=== PATIENT | female | born 1950 | race Caucasian/White ===

== ENCOUNTER 2018-05-04 13:15 | Day surgery (SDC) | payer MEDICARE, OTHER ==
[~2018-05-04 13:15] MED LIST: ALBU90OI6 INH; ALBU90OI61 INH; ALEN70 PO; AMAN100 PO; ASPI81CH PO; Allergy Relief10 M1 PO; Anastrozole1 GM MC; BUPRENORPHINE HC2 MG SL; CLOB.05TO; CLON.5 PO; CODGUAEL PO; CYCL10 PO; Cinnamon500 MG PO; DOCU100 PO; FISH1000 PO; FLUSAL2505 INH; FLUT.05NI; HYDACE10B PO; LACT10SY PO; LOPE2C PO; LOSA50 PO; LOSARTAN POTAS100 MG PO; MORP30ER PO; Miralax17 GM; Norvasc2.5 MG PO; OMEP20ER PO; OMEP40CA12 PO; OXYB5 PO; Oxybutynin Chlo10 MG PO; PRAV20 PO; PREG25 PO; PROM25 PO; PSYL5.85P PO; Pravachol40 MG PO; RASPBERRY KETO100 MG PO; RELISTOR12 MG/0.6; SENN187 PO; Senna8.6 M1 PO; Sudogest60 MG PO; TRAZ100 PO; TROSPIUM CHLORI20 MG PO; VITAMIN D-32000 UNI1 PO; VITAMIN D-32000 UNIT PO; ZIPSOR25 MG PO; [UNRECOGNIZED DRUG - OTHER]; [UNRECOGNIZED DRUG - OTHER] TOP
--- NOTE | 2018-05-04 16:51 | NUR ---
Patient up to Ambulate independently. Gait steady. Discharge instructions reviewed with patient. Patient verbalizes understanding. Copy given to patient to take home. Dressing to procedure site clean, dry, intact with no visible drainage, swelling, erythema or bruising noted. Patient States Post-Procedure ride home has been arranged.
== END 2018-05-04 22:35 | disposition home or self-care (01) ==
LOC: US 13:15
PROVIDERS: Radiology Diagnostic Radiology
PROC: 0FB03ZX Excision of Liver, Percutaneous Approach, Diagnostic (ICD-10-PCS; principal; 2018-05-04 15:00)
DX: K75.81 Nonalcoholic steatohepatitis (NASH) (principal); K74.0 Hepatic fibrosis; I10 Essential (primary) hypertension; E78.5 Hyperlipidemia, unspecified; E11.9 Type 2 diabetes mellitus without complications
CPT/HCPCS: 47000; 76942; 88307; 88313

== ENCOUNTER 2018-11-24 11:06 | Day surgery (SDC) | payer MEDICARE, OTHER ==
[~2018-11-24] VITALS: Ht 154.9 cm; Wt 84.4 kg
[~2018-11-24 11:06] MED LIST changes: +ALBU90OI INH; +ATECHL PO; +Aspir 8181 MG PO; +CHOL10002 PO; +COQ1050 MG PO; +DULO60 PO; +Flonase 0.05% N16 GM; +GLUCOSAMINE &1 EACH PO; +Hydrocodone-Ap1 EA23 PO; +Loratadine10 MG PO; +MAGNESIUM PO; +METAMUCIL; +MIRALAX119 GM; +Metformin HCl500 M1 PO; +OMEG1CAP30 PO; +PHENYLEPHRINE PO; +Vitamin C100 M1 PO; +[UNRECOGNIZED DRUG - OTHER] PO
--- NOTE | 2018-11-24 12:33 | NUR ---
Ambulatory in Day Surgery. History, Chart, Medications and Allergies reviewed before start of procedure. Lungs clear T/O to Auscultation. Patient confirms NPO status and agrees with scheduled surgery. Pre-Op teaching done. Pt verbalizes understanding. Patient States Post-Procedure ride home has been arranged. , Howard, at bedside.
--- NOTE | 2018-11-24 13:13 | NUR ---
11/24/18 1313 Mark Interiano History, Chart, Medications and Allergies reviewed before start of procedure.MONITOR INTACT WITH CONTINUOUS PULSE OXIMETRY AND INTERMITTENT BP.3-LEAD EKG REVIEWED WITH PHYSICIAN PRIOR TO START OF PROCEDURE.O2 VIA N/C INTACT THROUGHOUT SEDATION/PROCEDURE. Patient confirms NPO status and agrees with scheduled surgery.See Anesthesia record.
--- NOTE | 2018-11-24 14:33 | NUR ---
Discharge instructions reviewed with patient. Patient verbalizes understanding. Copy given to patient to take home. Discharged via wheelchair to private car for ride home.
== END 2018-11-24 23:18 | disposition home or self-care (01) ==
LOC: ORSCMMR 11:06 → ORD 13:00 → ORSCMMR 13:00
PROVIDERS: Internal Medicine Gastroenterology
PROC: 0DJ08ZZ Inspection of Upper Intestinal Tract, Via Natural or Artificial Opening Endoscopic (ICD-10-PCS; principal; 2018-11-24 13:00)
DX: Z13.810 Encounter for screening for upper gastrointestinal disorder (principal); K74.60 Unspecified cirrhosis of liver; E11.9 Type 2 diabetes mellitus without complications; I10 Essential (primary) hypertension; J44.9 Chronic obstructive pulmonary disease, unspecified; G47.33 Obstructive sleep apnea (adult) (pediatric); Z99.81 Dependence on supplemental oxygen; Z87.891 Personal history of nicotine dependence; Z79.899 Other long term (current) drug therapy; Z79.82 Long term (current) use of aspirin; E66.01 Morbid (severe) obesity due to excess calories; Z68.35 Body mass index [BMI] 35.0-35.9, adult
CPT/HCPCS: 82947; J2704; J7120

== ENCOUNTER → 2019-01-12 | Outpatient (CLI) | payer MEDICARE, OTHER | LOC: LAB SHORT 08:20 → PLD 08:20 | DX: L98.6 Other infiltrative disorders of the skin and subcutaneous tissue (principal) | CPT/HCPCS: 88305 ==

== ENCOUNTER → 2019-03-09 | Outpatient (CLI) | payer MEDICARE, OTHER | END | disposition home or self-care (01) | LOC: LAB SHORT 16:13 → LAB 16:13 | DX: L08.0 Pyoderma (principal) | CPT/HCPCS: 87070; 87205 ==

== ENCOUNTER 2020-06-30 07:24 | Day surgery (SDC) | payer MEDICARE, OTHER ==
[~2020-06-30] VITALS: Ht 149.9 cm; Wt 72.8 kg
--- NOTE | 2020-06-30 08:07 | NUR ---
06/30/20 0807 Vianney Holloway 1 TRY RIGHT WRIST VALVE BLEW
--- NOTE | 2020-06-30 09:07 | NUR ---
06/30/20 0907 Nola Corbin UNABLE TO ADVANCE REGULAR COLONOSCOPE PROCEDURE STOPPED T 904 AND RESTARTED AT 906 WITH PEDIATRIC SCOPE
== END 2020-06-30 10:30 | disposition home or self-care (01) ==
LOC: ORSCSDS 07:24
DX: R10.826 Epigastric rebound abdominal tenderness (principal); Z12.11 Encounter for screening for malignant neoplasm of colon; K57.30 Diverticulosis of large intestine without perforation or abscess without bleeding; K64.4 Residual hemorrhoidal skin tags; K64.8 Other hemorrhoids; Z86.010 Personal history of colon polyps; J44.9 Chronic obstructive pulmonary disease, unspecified; K74.60 Unspecified cirrhosis of liver; K75.81 Nonalcoholic steatohepatitis (NASH); Z79.82 Long term (current) use of aspirin; Z79.899 Other long term (current) drug therapy; F17.210 Nicotine dependence, cigarettes, uncomplicated
CPT/HCPCS: 43239; G0105; 82947; 88305; 88342; J2405; J2704; J7120

== ENCOUNTER 2021-01-24 14:19 | Emergency (ER) | payer MEDICARE, OTHER ==
[~2021-01-24] VITALS: Ht 149.9 cm; Wt 77.6 kg
[2021-01-24 15:53] LABS: SARS-Cov-2 (COVID-19) PCR, MMC POSITIVE (NEGATIVE)
== END 2021-01-24 19:41 | disposition home or self-care (01) ==
LOC: ER 14:19
PROVIDERS: Physician Assistant
DX: U07.1 COVID-19 (principal); J44.9 Chronic obstructive pulmonary disease, unspecified; I10 Essential (primary) hypertension; Z88.1 Allergy status to other antibiotic agents; Z91.040 Latex allergy status; Z91.048 Other nonmedicinal substance allergy status; Z91.011 Allergy to milk products; Z88.8 Allergy status to other drugs, medicaments and biological substances; Z79.899 Other long term (current) drug therapy; Z79.82 Long term (current) use of aspirin; Z87.891 Personal history of nicotine dependence
CPT/HCPCS: 36415; 99284; M0243; Q0243; U0004

== ENCOUNTER → 2021-03-29 | Outpatient (CLI) | payer MEDICARE, OTHER ==
[2021-03-29 20:24] LABS: Albumin, Blood 3.5 g/dL (3.4-5.0); Anion Gap 6 mmol/L (6-16); Blood Urea Nitrogen 23 mg/dL (8-24); CO2, Blood 28 mmol/L (21-32); Calcium, Blood 9.1 mg/dL (8.5-10.1); Chloride, Blood 102 mmol/L (98-108); Glomerular Filtration Rate 54 (60-); Glucose, Blood 99 mg/dL (70-99); Phosphorus, Blood 3.4 mg/dL (2.5-4.9); Potassium, Blood 4.2 mmol/L (3.5-5.5); Sodium, Blood 136 mmol/L (136-145)
== END | disposition home or self-care (01) ==
LOC: LAB SHORT 19:00
PROVIDERS: Physician Assistant
DX: R94.4 Abnormal results of kidney function studies (principal)
CPT/HCPCS: 80069

== ENCOUNTER 2021-10-24 20:54 | Emergency (ER) | payer MEDICARE, OTHER ==
[~2021-10-24] VITALS: Ht 149.9 cm; Wt 72.6 kg
[2021-10-24 22:02] LABS: BASOPHILS ABSOLUTE AUTO 0.04 K/mm3 (0.00-0.23); BASOPHILS PERCENT AUTO 1 % (0-2); EOSINOPHILS ABSOLUTE AUTO 0.17 K/mm3 (0.00-0.68); EOSINOPHILS PERCENT AUTO 2 % (0-6); Hematocrit 42.3 % (33.0-51.0); Hemoglobin 14.1 g/dL (11.5-16.0); IMMATURE GRAN ABSOLUTE AUTO 0.02 K/mm3 (0.00-0.10); IMMATURE GRAN PERCENT AUTO 0 % (0-1); LYMPHOCYTES ABSOLUTE AUTO 1.66 K/mm3 (0.84-5.20); LYMPHOCYTES PERCENT AUTO 21 % (21-46); MONOCYTES ABSOLUTE AUTO 0.64 K/mm3 (0.16-1.47); MONOCYTES PERCENT AUTO 8 % (4-13); Mean Corpuscular HGB 32.9 pg (26.0-34.0); Mean Corpuscular HGB Conc 33.3 g/dL (31.5-36.5); Mean Corpuscular Volume 99 fL (80-100); Mean Platelet Volume 8.8 fL (9.1-12.4); NEUTROPHILS ABSOLUTE AUTO 5.26 K/mm3 (1.96-9.15); NEUTROPHILS PERCENT AUTO 68 % (41-73); Platelet Count 228 K/mm3 (150-400); RDW Coefficient Variation 11.9 % (11.7-14.2); RDW Standard Deviation 43.4 fL (35.1-46.3); Red Blood Cell Count 4.29 M/mm3 (3.80-5.20); White Blood Cell Count 7.79 K/mm3 (4.00-11.30)
[2021-10-24 22:20] LABS: Albumin, Blood 3.9 g/dL (3.4-5.0); Albumin/Globulin Ratio 0.9 (0.8-1.8); Bilirubin, Total 0.5 mg/dL (0.1-1.0); Bun/Creatinine Ratio 22.4 (12.0-20.0); Calcium, Blood 9.7 mg/dL (8.5-10.1); Creatinine, Blood 0.98 mg/dL (0.40-1.00); Globulin, Blood 4.5 g/dL (2.2-4.0); Potassium, Blood 4.4 mmol/L (3.5-5.5); Total Protein, Blood 8.4 g/dL (6.4-8.2)
[2021-10-24 23:35] LABS: Source, Urine Clean Catch
[2021-10-24 23:44] LABS: Bilirubin, Urine Neg (Neg); Blood, Urine Neg (Neg); Glucose Qualitative, Urine Neg (Neg); Ketones, Urine Neg (Neg); Leukocyte Esterase, Urine Neg (Neg); Nitrite, Urine Neg (Neg); Protein, Urine 2+ (Neg); Urobilinogen, Urine NORM (Normal)
[2021-10-24 23:50] LABS: Appearance, Urine Clear (Clear); Color, Urine Yellow (P-Yellow)
[2021-10-24 23:51] LABS: Bacteria Rare /hpf; Red Blood Cells, Urine 0-2 /hpf (0-2); Squamous Epithelial Cells Few /hpf (Few); White Blood Cells, Urine 0-2 /hpf (0-5)
[2021-10-25] MEDS ORDERED: DICY20 PO (00:24)
== END 2021-10-25 01:02 | disposition home or self-care (01) ==
LOC: ER 20:54
PROVIDERS: Physician Assistant
DX: R10.9 Unspecified abdominal pain (principal); R19.7 Diarrhea, unspecified; R31.9 Hematuria, unspecified; J44.9 Chronic obstructive pulmonary disease, unspecified; I10 Essential (primary) hypertension; Z79.899 Other long term (current) drug therapy; Z79.82 Long term (current) use of aspirin; Z91.09 Other allergy status, other than to drugs and biological substances; Z91.040 Latex allergy status; Z88.1 Allergy status to other antibiotic agents; Z88.8 Allergy status to other drugs, medicaments and biological substances; Z87.891 Personal history of nicotine dependence
CPT/HCPCS: 36415; 74176; 80053; 81001; 85025; 96374; 96375; 99284-25; J2405; J3010

== ENCOUNTER 2022-05-16 13:10 | Day surgery (SDC) | payer MEDICARE, OTHER ==
[~2022-05-16] VITALS: Ht 149.9 cm; Wt 72.2 kg
[~2022-05-16 13:10] MED LIST changes: +DICY20 PO
== END 2022-05-16 15:25 | disposition home or self-care (01) ==
LOC: ORSCSDS 13:10
PROVIDERS: Internal Medicine Gastroenterology
PROC: 0DJ08ZZ Inspection of Upper Intestinal Tract, Via Natural or Artificial Opening Endoscopic (ICD-10-PCS; principal; 2022-05-16 14:30)
DX: K75.81 Nonalcoholic steatohepatitis (NASH) (principal); J44.9 Chronic obstructive pulmonary disease, unspecified; K76.0 Fatty (change of) liver, not elsewhere classified; R53.82 Chronic fatigue, unspecified; B19.20 Unspecified viral hepatitis C without hepatic coma; F32.A Depression, unspecified; E78.00 Pure hypercholesterolemia, unspecified; I10 Essential (primary) hypertension; F17.210 Nicotine dependence, cigarettes, uncomplicated; E66.9 Obesity, unspecified; Z68.32 Body mass index [BMI] 32.0-32.9, adult; Z79.82 Long term (current) use of aspirin; Z79.899 Other long term (current) drug therapy
CPT/HCPCS: 82947; A9270; J2704; J7120

== ENCOUNTER → 2022-11-26 | Outpatient (CLI) | payer MEDICARE, OTHER ==
[2022-11-26 19:49] LABS: Bun/Creatinine Ratio 19.4 (12.0-20.0); Calcium, Blood 9.2 mg/dL (8.5-10.1); Creatinine, Blood 1.03 mg/dL (0.40-1.00); Potassium, Blood 4.1 mmol/L (3.5-5.5)
[2022-11-29 12:13] LABS: QUANTIFERON MITOGEN VALUE >10.00 IU/mL (.); QUANTIFERON NIL VALUE 0.04 IU/mL (.); QUANTIFERON TB1 AG VALUE 0.09 IU/mL (.); QUANTIFERON TB2 AG VALUE 0.08 IU/mL (.); QUANTIFERON-TB GOLD PLUS Negative (Negative)
== END | disposition home or self-care (01) ==
LOC: LAB SHORT 16:03 → LAB 16:03
PROVIDERS: Family Medicine
DX: I12.9 Hypertensive chronic kidney disease with stage 1 through stage 4 chronic kidney disease, or unspecified chronic kidney disease (principal); N18.30 Chronic kidney disease, stage 3 unspecified; D84.9 Immunodeficiency, unspecified; L40.9 Psoriasis, unspecified; Z79.899 Other long term (current) drug therapy
CPT/HCPCS: 80048; 82306; 86480

== ENCOUNTER → 2023-08-05 | Outpatient (CLI) | payer MEDICARE, OTHER ==
[2023-08-05 17:24] LABS: BASOPHILS ABSOLUTE AUTO 0.03 K/mm3 (0.00-0.23); BASOPHILS PERCENT AUTO 1 % (0-2); EOSINOPHILS PERCENT AUTO 5 % (0-6); Hematocrit 38.9 % (33.0-51.0); Hemoglobin 12.9 g/dL (11.5-16.0); IMMATURE GRAN ABSOLUTE AUTO 0.02 K/mm3 (0.00-0.10); IMMATURE GRAN PERCENT AUTO 0 % (0-1); LYMPHOCYTES ABSOLUTE AUTO 1.24 K/mm3 (0.84-5.20); LYMPHOCYTES PERCENT AUTO 22 % (21-46); MONOCYTES ABSOLUTE AUTO 0.47 K/mm3 (0.16-1.47); MONOCYTES PERCENT AUTO 9 % (4-13); Mean Corpuscular HGB 32.6 pg (26.0-34.0); Mean Corpuscular HGB Conc 33.2 g/dL (31.5-36.5); Mean Corpuscular Volume 98 fL (80-100); Mean Platelet Volume 9.3 fL (9.1-12.4); NEUTROPHILS ABSOLUTE AUTO 3.48 K/mm3 (1.96-9.15); NEUTROPHILS PERCENT AUTO 63 % (41-73); Platelet Count 211 K/mm3 (150-400); RDW Coefficient Variation 12.7 % (11.7-14.2); RDW Standard Deviation 45.7 fL (35.1-46.3); Red Blood Cell Count 3.96 M/mm3 (3.80-5.20); White Blood Cell Count 5.54 K/mm3 (4.00-11.30)
[2023-08-05 18:18] LABS: Alanine Aminotransfer (ALT/SGP 34 U/L (12-78); Albumin, Blood 3.3 g/dL (3.4-5.0); Albumin/Globulin Ratio 0.8 (0.8-1.8); Alk Phos 87 U/L (50-136); Anion Gap 7 mmol/L (3-11); Aspartate Aminotrans (AST/SGOT 29 U/L (12-37); Bilirubin, Total 0.4 mg/dL (0.1-1.0); Blood Urea Nitrogen 22 mg/dL (8-24); Bun/Creatinine Ratio 24.7 (12.0-20.0); CHOL/HDL RATIO 4.4; CO2, Blood 32 mmol/L (21-32); Calcium, Blood 8.9 mg/dL (8.5-10.1); Chloride, Blood 100 mmol/L (98-108); Cholesterol 222 mg/dL (50-200); Creatinine, Blood 0.89 mg/dL (0.40-1.00); Free Thyroxine 0.88 ng/dL (0.70-1.60); Glomerular Filtration Rate 68 (60-); Glucose, Blood 115 mg/dL (70-99); HDL Cholesterol 51 mg/dL (>39); LDL/HDL RATIO 2.7; Low Density Lipoprotein Chol 139 mg/dL (0-110); Potassium, Blood 4.1 mmol/L (3.5-5.5); Sodium, Blood 135 mmol/L (136-145); Total Protein, Blood 7.3 g/dL (6.4-8.2); Triglycerides 161 mg/dL (30-160); Very Low Density Lipoprot Chol 32 mg/dL (6-32)
== END ==
LOC: LAB SHORT 16:07 → LAB 16:07
PROVIDERS: Family Medicine
DX: E11.9 Type 2 diabetes mellitus without complications (principal); E07.9 Disorder of thyroid, unspecified; E78.5 Hyperlipidemia, unspecified; I10 Essential (primary) hypertension
CPT/HCPCS: 80053; 80061; 83036; 84439; 84443; 85025

== ENCOUNTER → 2025-03-07 | Outpatient (CLI) | payer MEDICARE, OTHER | END | disposition home or self-care (01) | LOC: LAB 18:13 → LAB SHORT 18:13 | DX: R82.998 Other abnormal findings in urine (principal) | CPT/HCPCS: 88108 ==